=== PATIENT | male | born 1995 | race Caucasian/White ===

== ENCOUNTER 2017-07-27 20:25 | Emergency (ER) | payer OTHER, MEDICAID, SELFPAY ==
[2017-07-27 20:25] VITALS: BP 106/46; PULSE 106; RESP 24; TEMP 36.8; O2SAT 96; BMI 23.9
[2017-07-27] MEDS: 0.9% Normal Saline 1,000 ML 150 ML IV (23:05)
[2017-07-27] MEDS: Ondansetron 4 MG/2 ML Vial IV (23:05)
[2017-07-27 23:58] LABS: Absolute Lymphocyte Count 1.74 X10^3/ul (0.83-4.51); Absolute Neutrophil Count 6.7 X10^3/uL (2.0-7.7); Basophil# 0.02 X10^3/uL; Basophil% 0.2 % (0-1); Eosinophil# 0.04 X10^3/uL; Eosinophils% 0.4 % (0-5); Hematocrit 41.2 % (40-54); Hemoglobin 14.2 g/dl (13.0-16.5); Lymphocyte # 1.74 X10^3/ul (4.0); Lymphocyte % 18.2 % (19-41); Mean Corp Hgb Conc 34.5 g/gl (32-36); Mean Corpuscular Hgb 31.2 pg (27.0-32.0); Mean Corpuscular Volume 90.5 fL (80-94); Mean Platelet Vol. 11.3 fl (6.2-12.0); Monocyte# 1.12 X10^3/uL; Monocyte% 11.7 % (0-10); Neutrophil # 6.65 X10^3/uL (2.7-7.7); Neutrophil % 69.4 % (47-70); Platelet Count 164 K/mm3 (150-450); RBC Distribution Width CV 12.1 % (11.6-14.6); RBC Distribution Width SD 39.8 fl (35.1-43.9); Red Blood Count 4.55 M/mm3 (4.6-6.2); White Blood Count 9.6 K/mm3 (4.4-11.0)
[2017-07-28 00:05] VITALS: PULSE 102; RESP 18; O2SAT 98
[2017-07-28 00:10] LABS: POSITIVE COUNT NO; POSITIVE DIFFERENTIAL NO; POSITIVE MORPHOLOGY NO
[2017-07-28 00:13] LABS: Anion Gap 6 (5-15); BUN 11 mg/dL (7-18); BUN/Creat Ratio 16.4 RATIO (10-20); Calcium,Total 8.8 mg/dL (8.5-10.1); Chloride 109 mmol/L (98-107); Creatinine, Serum 0.67 mg/dL (0.70-1.30); EST Glomerular Filtration Rate 160 mL/min (>60); Est Glom Filt Rate - Afr Amer 193 mL/min (>60); Estimated Creatinine Clearance 141.54 ml/min; Glucose 100 mg/dL (74-106); Sodium Level 142 mmol/L (136-145)
--- NOTE | 2017-07-28 00:24 | ED.DCSUM_ITS ---
- ER Visit Summary Date of Service: 07/28/17 Chief Complaint: Fever and vomiting History of Present Illness: The patient is a 21 M with a fever up to 102 over the past 3 days. He was seen in urgent care yesterday morning and had a negative strep test. There is no obvious source of fever. Tonight the patient vomited after dinner and had some streaks of blood in it. Patient reportedly has a history of reflux but is not currently on antacid medication. There is no known history of ulcers. Physical Examination: Vital signs are remarkable for heart rate of 106, otherwise normal. Patient's lying in bed no acute distress. Head neck examination reveals moist mucous membranes. Left TM is erythematous slightly bulging. Right TM is clear. Posterior pharynx examination is unremarkable. Heart is slightly tachycardic and regular. Lung sounds are clear. Abdomen is soft and nontender. Active bowel sounds are noted throughout. Skin examination was no rash or lesions. Test Results: CBC and chemistry studies are unremarkable. Emergency Department Course and Treatment: Patient was given Zofran, Pepcid, and IV fluids here. On repeat evaluation he is doing well and has had no further episodes of vomiting. He is given a dose of oral amoxicillin here given prescriptions for amoxicillin, Zofran, and Zantac syrup. Mother will closely monitor his symptoms. Treatment Plan: [] Disposition: Discharge Impression: 1. Left otitis media 2. Vomiting, improved This note was generated with [employer] dictation software. It may contain incorrect words, spelling, and punctuation that were not noted in review of the chart prior to signing ED Disposition - Plan for ED Patient: Disposition: Home or Assisted Living Chief Complaint: Nausea/Vomiting Instructions: ED Otitis Media Acute Adult, ED Nausea Vomiting Prescriptions: Ondansetron [Zofran Odt] 4 mg PO Q8H PRN PRN #10 tablet PRN Reason: Nausea Amoxicillin Suspension [Amoxil Suspension] 1,000 mg PO Q8H #10 days Ranitidine [Zantac] 150 mg PO BID #1 bottle Referrals: Amor Weber MD [Primary Care Provider] - 1 Week
--- NOTE | 2017-07-28 00:28 | DCINST.ED_ITS ---
ED Disposition - Plan for ED Patient: Disposition: Home or Assisted Living Chief Complaint: Nausea/Vomiting Instructions: ED Otitis Media Acute Adult, ED Nausea Vomiting Prescriptions: Ondansetron [Zofran Odt] 4 mg PO Q8H PRN PRN #10 tablet PRN Reason: Nausea Amoxicillin Suspension [Amoxil Suspension] 1,000 mg PO Q8H #10 days Ranitidine [Zantac] 150 mg PO BID #1 bottle Referrals: Amor Weber MD [Primary Care Provider] - 1 Week
[2017-07-28] MEDS: Amoxicillin 200MG/5 ML Susp PO.SYRINGE 1000 MG PO (00:41)
[2017-07-28 00:46] VITALS: BP 104/60; PULSE 107; RESP 18
== END 2017-07-28 00:47 | disposition home or self-care (01) ==
PROVIDERS: Emergency Provider Emergency Medicine; Family Provider Family Medicine; PCP Family Medicine
DX: H66.92 Otitis media, unspecified, left ear (principal); R11.10 Vomiting, unspecified; K21.9 Gastro-esophageal reflux disease without esophagitis; G40.909 Epilepsy, unspecified, not intractable, without status epilepticus; Z79.899 Other long term (current) drug therapy
CPT/HCPCS: 80048; 85025; 96365; 96375; 99283; J7030; A4216; J2405; J3490